=== PATIENT | female | born 1960 | race Caucasian/White ===

== ENCOUNTER 2016-07-30 12:48 | Emergency (ER) | payer OTHER ==
[~2016-07-30] VITALS: Ht 167.6 cm; Wt 73.9 kg
[~2016-07-30 12:48] MED LIST: DUREZOL 0.100 DROP/5 RIGHT EYE; ERYTHROMYC1 APPLICAT RIGHT EYE; FLUOXETINE; MAGNESIUM100 MG PO; MULTI-DAY VITA1 EACH PO; PROGRAF PO; RESTASIS 01 DROP/0.4 BOTH EYES; VIGAMOX 0.60 DROP/3 BOTH EYES; [UNRECOGNIZED DRUG - OTHER]
[2016-07-30] MEDS ORDERED: VIGAMOX 0.60 DROP/3 RIGHT EYE (14:48)
[2016-07-30 14:59] VITALS: BP 128/79
== END 2016-07-30 14:59 | disposition home or self-care (01) ==
LOC: RME 12:48 → EME 12:48 → RME 14:59
DX: S05.01XA Injury of conjunctiva and corneal abrasion without foreign body, right eye, initial encounter (principal); X58.XXXA Exposure to other specified factors, initial encounter; Y93.E8 Activity, other personal hygiene; Y99.0 Civilian activity done for income or pay
CPT/HCPCS: 99281; 99283